=== PATIENT | female | born 1935 | race Caucasian/White ===

== ENCOUNTER → 2023-06-14 14:42 | Outpatient (REF) | payer OTHER, SELFPAY | LOC: RAD 14:42 | PROVIDERS: ATTENDING PHYSICIAN Family Medicine | DX: M25.562 Pain in left knee (principal) | CPT/HCPCS: 73564; 73565 ==

== ENCOUNTER → 2024-01-09 11:20 | Outpatient (REF) | payer OTHER, SELFPAY | LOC: RAD 11:20 | PROVIDERS: ATTENDING PHYSICIAN Internal Medicine Rheumatology; FAMILY PHYSICIAN Family Medicine | DX: M81.0 Age-related osteoporosis without current pathological fracture (principal); Z13.820 Encounter for screening for osteoporosis | CPT/HCPCS: 77080 ==

== ENCOUNTER → 2024-04-30 12:43 | Outpatient (REF) | payer OTHER, SELFPAY | LOC: RAD 12:43 | PROVIDERS: ATTENDING PHYSICIAN Urology; FAMILY PHYSICIAN Family Medicine | DX: R31.0 Gross hematuria (principal); N32.9 Bladder disorder, unspecified; N39.0 Urinary tract infection, site not specified | CPT/HCPCS: 74178; Q9967 ==

== ENCOUNTER → 2025-02-12 11:13 | Outpatient (REF) | payer OTHER, SELFPAY | LOC: RAD 11:13 | PROVIDERS: ATTENDING PHYSICIAN Surgery Vascular Surgery; FAMILY PHYSICIAN Family Medicine | DX: I71.43 Infrarenal abdominal aortic aneurysm, without rupture (principal) | CPT/HCPCS: 76770 ==

== ENCOUNTER 2025-04-29 02:13 | Inpatient (IN) | payer OTHER, SELFPAY ==
[2025-04-28 15:35] VITALS: BP 122/62
[2025-04-28 16:16] LABS: Hematocrit 34.7 % (37.0-47.0); Hemoglobin 11.7 g/dL (12.0-16.0); Mean Corp Hgb Conc. 33.7 g/dL (33.0-37.0); Mean Corpuscular Volume 85.7 fL (81.0-99.0); Nucleated Red Blood Cells % 0 %; Platelet Count 241 10^3/uL (130-400); Red Cell Dist. Width 14.6 % (11.5-14.5)
[2025-04-28 16:28] LABS: INR 1.76; PT 20.7 Sec (11.4-14.6)
[2025-04-28 16:36] LABS: ALT (SGPT) 19 U/L (0-35); AST (SGOT) 25 U/L (14-36); Albumin 3.5 g/dl (3.5-5.0); Alkaline Phosphatase 75 U/L (38-126); Blood Urea Nitrogen 14 mg/dl (7-17); Calcium 8.9 mg/dl (8.4-10.2); Carbon Dioxide 23 mmol/L (22-30); Chloride 103 mmol/L (98-107); Glucose 92 mg/dl (70-99); Potassium 3.9 mmol/L (3.5-5.1); Sodium 131 mmol/L (135-145); Total Protein 6.0 g/dl (6.3-8.2); eGFR > 60.00
[2025-04-28 16:42] LABS: Troponin I 0.023 ng/ml
[2025-04-28 21:48] VITALS: BMI 29.4
[2025-04-28 21:55] VITALS: BP 149/86
[2025-04-28 22:00] VITALS: BP 163/77
--- NOTE | 2025-04-28 22:19 | ED.GENMED ---
History of Present Illness
General
Chief Complaint: Breathing Problem
Time Seen by Provider: 04/28/25 22:11
History of Present Illness
History of Present Illness:
Patient is a 89-year-old woman with history of CAD, sick sinus syndrome with pacemaker presenting to the emergency department with shortness of breath upon exertion. Patient states for the past few weeks she has had significant dyspnea on exertion.
It occurs only with significant exertion such as going up a flight of steps. She reported to walk a few steps to the bathroom she does not have significant shortness of breath. No chest pain. No lightheadedness dizziness. She is on Eliquis. No
chest pain or pressure. No diaphoresis. No nausea no vomiting.
Past History
Past History
ED Past Medical History: Arrthythmia (Paroxysmal atrial fibrillation) and HTN
ED Past Surgical History: Cardiac (Pacemaker), Tonsilectomy and Other (Cataract surgery, cornea transplant bilateral)
Social History
Tobacco: Former smoker
Living: with family
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
Phy Exam
Physical Exam
Physical Exam:
GENERAL: in no acute distress
HEENT: normocephalic, extraocular movements intact, moist oral mucosa
NECK: normal inspection
RESPIRATORY: no respiratory distress, clear to auscultation bilaterally
CARDIOVASCULAR: regular rate and rhythm
ABDOMEN/: soft, non-distended, non-tender to palpation, no rebound or guarding
EXTREMITIES: non-tender, no edema/swelling
NEUROLOGIC: awake and alert, moves all extremities
SKIN: warm
Scores
Heart Failure Risk
Heart Failure Risk Score: Not Applicable
Course
Orders/Labs/Results
Orders:
Orders
04/28/25 15:08
EKG [Electrocardiogram (*1)] Urgent
Reason for Study: Shortness of Breath
04/28/25 15:09
EKG- Treatment ONCE
04/28/25 15:37
CR Chest - 2 Views Urgent
Comment:
Reason For Exam: SOB
04/28/25 16:07
Complete Blood Count/With Diff Urgent
Comprehensive Metabolic Panel Urgent
Pro-BNP [NT-proBNP] Urgent
Prothrombin Time Urgent
Troponin I Urgent
04/28/25 22:11
Electrocardiogram (*1) Urgent
Reason for Study: Shortness of Breath
EKG- Treatment ONCE
04/28/25 22:41
Troponin I Urgent
Abnormal Lab Results
04/28/25
16:07
RBC 4.05 L 10^6/uL
(4.20-5.40)
Hgb 11.7 L g/dL
(12.0-16.0)
Hct 34.7 L %
(37.0-47.0)
RDW 14.6 H %
(11.5-14.5)
Absolute Lymphs (auto) 0.9 L 10^3/uL
(1.2-3.4)
Absolute Monos (auto) 1.3 H 10^3/uL
(0.1-0.6)
Lymphocytes % 10.0 L %
(20.5-51.1)
Monocytes % 14.5 H %
(1.7-9.3)
PT 20.7 H Sec
(11.4-14.6)
Sodium 131 L mmol/L
(135-145)
Total Protein 6.0 L g/dl
(6.3-8.2)
04/28/25 16:07
04/28/25 16:07
Vital Signs
Initial and Last Documented VS:
Initial Vital Signs
Temp Pulse Resp BP Pulse Ox
98.3 F 72 18 122/62 94
04/28/25 15:35 04/28/25 15:35 04/28/25 15:35 04/28/25 15:35 04/28/25 15:35
Last Documented Vital Signs
Temp Pulse Resp BP Pulse Ox
98.3 F 72 18 149/86 93
04/28/25 15:35 04/28/25 15:35 04/28/25 15:35 04/28/25 21:55 04/28/25 22:23
MDM/Problems Addressed
Differential Diagnosis Includes:
Patient is a 89-year-old woman with history of CAD, A-fib on Eliquis presenting to the emergency department shortness of breath upon exertion. On arrival pulse ox 94%. Exam is otherwise reassuring. Concern for dyspnea on exertion being patient's
anginal equivalent. Will check blood work including troponin x 2. Will obtain ambulatory pulse ox. EKG per my interpretation paced rhythm with PACs. Chest x-ray with no acute abnormality
*Pulse Oximetry
SaO2: 93
Oxygen Mode of Delivery: Room air
Patient hypoxic: yes
*Critical Care Note
Total Time (30-74mins, 75-104mins- exclusive of procedures): Not Applicable
Update Note
Update Note:
Upon standing patient's oxygen dropped to 88%. With ambulation patient in the mid 80s. Patient placed on nasal cannula. Discussed with hospitalist who excepted patient to their service. Delta troponin pending.
ED Attending Note
-
Portions of this chart may have been created with voice recognition software.� Occasional wrong word or��sound alike� substitutions may have occurred due to the inherent limitations of voice recognition software.
Discharge Plan
Departure
Patient Disposition: Admit
Date of Disposition: 04/28/25
Time of Disposition: 22:53
Presentation/result/management discussed w/ accepting MD/DO: Hospitalist
Discharge Problem:
Exertional dyspnea
Prescriptions:
No Action
atorvastatin 40 MG tablet
40 mg PO DAILY
calcium carbonate-vitamin D3 1 EACH capsule
1 cap PO QPM
Patient Comments:
1200 mg/1000 iu strength
One Daily Women 50 Plus 1 EACH tablet
1 ea PO QPM
metoprolol succinate 50 MG tablet extended release 24 hr
50 mg PO BID Qty: 60 1RF
Eliquis 5 MG tablet
5 mg PO BID Qty: 60 0RF
diltiazem HCl 120 MG capsule,extended release 24hr
120 mg PO DAILY Qty: 30 1RF
prednisolone acetate (PF) 1 % Drops,Suspension
1 drp BOTH EYES DAILY
phenazopyridine [Pyridium] 100 mg tablet
100 mg PO TID Qty: 6 0RF
cefdinir 300 mg capsule
300 mg PO BID 7 Days Qty: 14 0RF
Referrals:
UNKNOWN - PT DOES,NOT KNOW [Family Provider]
Interventions
Interventions:
*General Assessment Last Done: 04/28/25 15:36
*Neglect/Abuse Screening Last Done: 04/28/25 15:36
*ED COVID-19 Vaccine History Last Done: 04/28/25 15:35
*ED Influenza Vaccine History Last Done: 04/28/25 15:35
[facility] Fall Risk Assessment Tool Last Done: 04/28/25 21:49
*Risk Screen - Suicide (C-SSRS) Last Done: 04/28/25 15:36
ED- Cardiac Assessment Last Done: 04/28/25 21:51
ED- Pulmonary Assessment Last Done: 04/28/25 21:51
Discharge Date and Time
Print Language: TOGOLESE
[2025-04-28 23:00] VITALS: BP 148/69
[2025-04-28 23:27] LABS: Troponin I 0.015 ng/ml
[2025-04-29] VITALS (18 sets, daily range): BP systolic 113–156; BP diastolic 50–108; PULSE 74; O2SAT 98; BMI 29.4; BMI 28.6
--- NOTE | 2025-04-29 02:05 | HPS.HSE ---
Family Physician
-
Family Physician: Amna Queen
Chief Complaint
-
PERRY
History of Present Illness
Patient is an 89y F with PMH significant for ASCVD, A-Fib and CKD III who presents to ED complaining of PERRY. Patient states that she has noted gradually worsening dyspnea with exertion / activity over the past month or so. She denies any
associated chest pain, palpitations, cough, fevers / chills, etc. No prior h/o similar symptoms.
She started and abx for UTI symptoms about one week ago - otherwise no new medications / changes.
Medical History
Past Medical History
Past Medical History: Reports Other
Additional Past Medical History:
ASCVD (OM disease on cath in 2018 - no stent)
Paroxysmal Atrial Fibrillation
SSS
Hypertension
Infrarenal AAA (stable as of 02/2025)
Bladder Mass
OAB
CKD III
Past Surgical History: Reports Other
Additional Past Surgical History:
Cardiac Cath (no stent)
PPM Placement
D&C
Ex Lap
TURBT
Social History
Tobacco: Former Smoker (Quit smoking 10 years ago. > 40 pack years total use.)
Alcohol: None
Drug: None
Family History
Family History: Not pertinent
Allergies / Home Medications
Allergies reflects when Allergies were last updated in [facility].
Home Medications with original date entered in [facility]
Allergy/Medication List:
Allergies
Allergy/AdvReac Type Severity Reaction Status Date / Time
nitrofurantoin (From AdvReac Mild Shortness Verified 04/28/25 15:34
Macrobid) of Breath
Home Medications
atorvastatin 40 mg tablet 40 mg PO DAILY 08/10/17
calcium 600 mg (as carbonate)-vitamin D3 12.5 mcg (500 unit) capsule 1 cap PO QPM 11/12/17
multivitamin with [id number] 400 mcg-120 mg tablet (One Daily Women 50 Plus) 1 ea PO QPM 11/12/17
apixaban 5 mg tablet (Eliquis) 5 mg PO BID #60 tabs 11/15/17
diltiazem HCl 120 mg capsule,extended release 24 hr 120 mg PO DAILY #30 caps 11/15/17
metoprolol succinate 50 mg tablet,extended release 24 hr 50 mg PO BID ##60 11/15/17
prednisolone acetate (PF) 1 % eye drops,suspension 1 drp BOTH EYES DAILY 11/26/21
cefuroxime axetil 250 mg tablet 250 mg PO BID 04/29/25
Review of Systems
-
History Source: Patient
A 12 point ROS was completed and negative except as noted: Yes
Constitutional: Reports Fatigue; Denies Fever or Chills
EENT: Denies Sore Throat
Respiratory: Reports Trouble Breathing; Denies Cough
Cardiac: Denies Chest Pain, Diaphoresis, Palpitations or Syncope
Abdomen/GI: Denies Abdominal Pain, Nausea, Vomiting or Diarrhea
: Denies Dysuria, Frequency or Flank Pain
Musculoskeletal: Denies Joint Pain, Joint Swelling or Edema
Neurological: Denies Dizzy or Headache
Psych: Denies Depression or Anxiety
Physical Exam
Vital Signs
Vital Signs
Temp Pulse Resp BP Pulse Ox
98.3 F 70 24 144/66 94
04/28/25 15:35 04/29/25 01:15 04/29/25 01:15 04/29/25 01:00 04/29/25 01:15
Physical Exam
General: Other (89y F in no acute distress at rest.)
HEENT: Moist mucous membranes and Other (Pos JVD / HJR)
Respiratory: Other (Few bibasilar rals)
Cardiac: S1/S2, Regular Rhythm and Murmur (II/ NEVILLE)
GI: Soft, Non Tender, Non Distended and Normal Bowel Sounds
Musculoskeletal: No Clubbing, No Cyanosis and No Edema
Neuro: AO x 3
Laboratory Results
-
04/28/25 16:07
04/28/25 16:07
Laboratory Results
PT 20.7 Sec (11.4-14.6) H 04/28/25 16:07
INR 1.76 04/28/25 16:07
Total Bilirubin 1.3 mg/dl (0.2-1.3) 04/28/25 16:07
AST 25 U/L (14-36) 04/28/25 16:07
ALT 19 U/L (0-35) 04/28/25 16:07
Alkaline Phosphatase 75 U/L (38-126) 04/28/25 16:07
Troponin I 0.015 ng/ml D 04/28/25 22:41
Impression/Plan
-
A/P: Patient is an 89y F with PMH significant for ASCVD, hypertension and CKD who presents to ED complaining of PERRY x 1 month or so.
PERRY
Acute Hypoxemic Respiratory Insufficiency
- Admit for further evaluation and treatment.
- Patient reportedly with SpO2 saturations into the 80s during ambulation in the ED.
- Currently 92 - 96% on supplemental O2 at rest.
- EKG unremarkable. Non-negative troponin already trending down.
- CXR unremarkable.
- Low suspicion for PE with gradual onset, absence of chest discomfort and compliance with Eliquis.
Acute HF - Unknown Type
- New onset CHF seems most likely diagnosis.
- Check Echo for further evaluation.
- IV Lasix daily and follow I/Os, daily weights,. etc.
- Cardiology evaluation for additional recommendations.
ASCVD
- No chest pain at present. EKG is A-paced without evident ischemia.
- Troponin down-trending since admission.
Paroxysmal Atrial Fibrillation
- Stable. Paced rhythm at present.
- Continue metoprolol, diltiazem, Eliquis for now.
Benign Hypertension
- Stable. Continue usual med regimen.
- Adjust as needed to allow effective diuresis.
CKD II
- Reported by history. Current renal function is normal.
DVT Prophylaxis: On Eliquis
Code Status: Full
[2025-04-29 06:18] LABS: Hematocrit 35.0 % (37.0-47.0); Hemoglobin 11.6 g/dL (12.0-16.0); Mean Corp Hgb Conc. 33.1 g/dL (33.0-37.0); Mean Corpuscular Volume 87.1 fL (81.0-99.0); Platelet Count 220 10^3/uL (130-400); Red Cell Dist. Width 14.6 % (11.5-14.5)
[2025-04-29 06:45] LABS: Blood Urea Nitrogen 13 mg/dl (7-17); Calcium 8.9 mg/dl (8.4-10.2); Carbon Dioxide 27 mmol/L (22-30); Chloride 104 mmol/L (98-107); Estimated Creatinine Clearance 52 ml/min; Glucose 113 mg/dl (70-99); HDL Cholesterol 32 mg/dl; LDL Cholesterol, Calculated 45 mg/dl; Potassium 4.1 mmol/L (3.5-5.1); Sodium 138 mmol/L (135-145); Very Low Density Lipoprotein 16 mg/dl (0-30); eGFR > 60.00
--- NOTE | 2025-04-29 07:53 | W.PN.HOSP.TC ---
Today's Communication/Plan
-
CT chest pending
Assessment / Plan
Assessment / Plan
Impression:
Patient is an 89y F with PMH significant for ASCVD, A-Fib and CKD III who presents to ED complaining of PERRY. Patient states that she has noted gradually worsening dyspnea with exertion / activity over the past month or so. She denies any
associated chest pain, palpitations, cough, fevers / chills, etc. No prior h/o similar symptoms.
She started and abx for UTI symptoms about one week ago - otherwise no new medications / changes.
Echocardiogram done showed:
1. Normal biventricular size and systolic function. LVEF estimated 59%. Mild concentric LVH.
2. Mild aortic stenosis, mean gradient 11 mmHg.
3. Compared to echocardiogram report dated 04/07/2022 mild concentric LVH and mild aortic stenosis are now present.
There is recommended r/O PE
Assessment/plan:
Acute Hypoxemic Respiratory Insufficiency
Admitted for further evaluation and treatment.
Patient reportedly had SpO? saturations in the 80s during ambulation in the ED.
Currently maintaining 92�96% on supplemental oxygen at rest.
EKG unremarkable; troponin trending down.
Chest X-ray unremarkable.
Low suspicion for pulmonary embolism given gradual onset, absence of chest discomfort, and compliance with Eliquis.
Acute on Chronic Diastolic Congestive Heart Failure
Patient presented with shortness of breath; BNP elevated at 1880.
Troponin level noted (down-trending).
Continue IV diuresis with Lasix 40 mg daily.
Monitor daily weight and maintain strict intake/output.
Cardiology consulted.
Prior echocardiogram (04/07/2022):
LV ejection fraction 65�70%, no regional wall motion abnormalities.
Normal RV size and function; pacer wire in RV.
No significant valvular disease.
Repeat echocardiogram shows:
1. Normal biventricular size and systolic function. LVEF estimated 59%. Mild concentric LVH.
2. Mild aortic stenosis, mean gradient 11 mmHg.
3. Compared to echocardiogram report dated 04/07/2022 mild concentric LVH and mild aortic stenosis are now present.
Cardiology recommends to r/O PE
CT chest pending.
Atherosclerotic Cardiovascular Disease (ASCVD)
No chest pain currently.
EKG shows A-paced rhythm without ischemic changes.
Troponin continues to downtrend since admission.
Paroxysmal Atrial Fibrillation
Stable; paced rhythm at present.
Continue metoprolol, diltiazem, and Eliquis.
Benign Hypertension
Stable; continue current regimen.
Adjust as needed to optimize diuresis.
Chronic Kidney Disease Stage II
Reported by history; current renal function within normal limits.
Code Status: Full Code
DVT Prophylaxis: Eliquis
Diet: Regular
Disposition: CT chest pending
Total time spent on today's encounter was 65 minutes which included time spent in counseling the patient/family regarding diagnosis and treatment plan as listed above, goals of care, and symptom management. Case was discussed with nursing staff,
specialists, and care coordinators/case management. All labs and imaging personally reviewed by me. Remainder the time spent in detailed review of previous records, lab data, imaging, and other medical provider documentation.
Anticipated Discharge: 24 - 48 hours
Subjective/Interval History
-
Date of Service: April 29, 2025
Patient seen and examined at bedside, denies any chest pain , shortness of breath Improved, no abdominal pain, no nausea, no vomiting, no diarrhea or constipation.
Objective Data
-
Labs:
Laboratory Results
04/29/25
06:06
WBC 6.6
Hgb 11.6 L
Hct 35.0 L
Plt Count 220
Sodium 138
Potassium 4.1
Chloride 104
Carbon Dioxide 27
BUN 13
Creatinine 0.8
Glucose 113 H
Calcium 8.9
Vital Signs:
Vital Signs
Temp Pulse Resp BP Pulse Ox
98.3 F 66 26 156/61 93
04/28/25 15:35 04/29/25 03:15 04/29/25 03:00 04/29/25 03:00 04/29/25 03:15
Physical Exam
-
General: Well Developed, Well Nourished, No Apparent Distress and Comfortable
HEENT: Normocephalic, Atraumatic, Moist Mucous Membranes, No Ptosis, PERRLA and Nose Appears Normal
Respiratory: Clear to Auscultation and Non Labored Respirations
Cardiac: Regular Rhythm and S1/S2
Breast: Deferred by me
GI: Soft, Nontender, Nondistended and Normal Bowel Sounds
Genito-urinary: No Costovertebral Tender
Musculoskeletal: No Clubbing, No Cyanosis and No Edema
Skin: Warm
Neuro: Awake, Alert, Oriented, AO x 3 and No Motor Deficits
Psych: Calm
Data Reviewed
-
Diagnostic Radiology: Image personally visualized and interpreted and Report Reviewed by me
CT Scan: Image personally visualized and interpreted and Report Reviewed by me
Ultrasound: Image personally visualized and interpreted and Report Reviewed by me
MRI: Image personally visualized and interpreted and Report Reviewed by me
Medical Tests (Nuc Med, Echo etc): Image personally visualized and interpreted and Report Reviewed by me
Labs: Labs Reviewed by me
Old Records: Reviewed
[2025-04-29] MEDS: LIPITOR 40 MG PO (08:21)
[2025-04-29] MEDS: CARDIZEM CD 120 MG PO (08:21)
[2025-04-29] MEDS: ELIQUIS 5 MG PO ×2 (08:22→21:42)
[2025-04-29] MEDS: PRED FORTE 1% EYE DROPS 1 DROP BOTH EYES (08:22)
[2025-04-29] MEDS: TOPROL XL 50 MG PO ×2 (08:22→21:43)
[2025-04-29 08:28] LABS: Glycohemoglobin (HgbA1c) 5.8 % (4.0-5.9)
[2025-04-29] MEDS: LASIX 40 MG IV (08:30)
--- NOTE | 2025-04-29 09:38 | CON.CAR ---
Consultation
Consultation Request
Date/Time Consultation Requested: 04/29/25 @ 02:16
Date/Time Consultation Performed: 04/29/25 @ 09:00
Requesting Provider: Phu Castellon DO
Performing Provider: Maco Nelson MD
Reason for Consultation: concern for CHF
Medical History
-
Chief Complaint: SOB
History of Present Illness:
89-year-old female with paroxysmal atrial fibrillation, PPM for tachybradycardia syndrome, and hypertension who presents with shortness of breath. Patient reports that she has had dyspnea on exertion since around and it is getting
worse which prompted her to come to the hospital. She denies leg swelling, orthopnea, weight gain, chest pain, cough, sick contacts and palpitations. She had a cystoscopy done and had to hold her Eliquis but she does not remember when this was (at
some point in the past 1 year). Of note, her weight here is stable from her office visit in January at which time she weighed 182 pounds.
Past Medical History
Past Medical History: Arrhythmias (pAF, tachybrady s/p PPM) and HTN
Past Surgical History: Other (unrelated)
Social History
Tobacco: Non-Smoker
Family History
Family History: Reviewed & Not Pertinent
Allergies / Home Medications
Allergy/AdvReac Type Severity Reaction Status Date / Time
nitrofurantoin (From AdvReac Mild Shortness Verified 04/28/25 15:34
Macrobid) of Breath
�Medication �Instructions �Recorded �Confirmed �Type
atorvastatin 40 mg tablet 40 mg PO DAILY 08/10/17 04/29/25 History
calcium 600 mg (as 1 cap PO QPM 11/12/17 04/29/25 History
carbonate)-vitamin D3 12.5 mcg
(500 unit) capsule
multivitamin with hrz-PR-brtotu 1 ea PO QPM 11/12/17 04/29/25 History
400 mcg-120 mg tablet (One Daily
Women 50 Plus)
apixaban 5 mg tablet (Eliquis) 5 mg PO BID #60 tabs 11/15/17 04/29/25 Rx
diltiazem HCl 120 mg 120 mg PO DAILY #30 caps 11/15/17 04/29/25 Rx
capsule,extended release 24 hr
metoprolol succinate 50 mg 50 mg PO BID ##60 11/15/17 04/29/25 Rx
tablet,extended release 24 hr
prednisolone acetate (PF) 1 % eye 1 drp BOTH EYES DAILY 11/26/21 04/29/25 History
drops,suspension
cefuroxime axetil 250 mg tablet 250 mg PO BID 04/29/25 04/29/25 History
Review of Systems
-
All other systems: Negative unless noted
Physical Exam
Vital Signs
Temp Pulse Resp BP Pulse Ox
98.3 F 70 20 149/72 91
04/28/25 15:35 04/29/25 09:15 04/29/25 09:15 04/29/25 08:30 04/29/25 09:29
Lab Results
04/29/25 06:06
04/29/25 06:06
Troponin I 0.015 ng/ml D 04/28/25 22:41
Ttw-P-Zcwwsobeljm Pept 1880 pg/ml 04/28/25 16:07
Physical Exam
General: Well Developed and Well Nourished
Respiratory: Clear and Non Labored Respirations; Negative Crackles
Cardiac: S1/S2 and Regular Rhythm; Negative Peripheral Edema or JVD
Neuro: AO x 3
Impression / Plan
-
89-year-old female with paroxysmal atrial fibrillation, PPM for tachybradycardia syndrome, and hypertension who presents with shortness of breath, found to be hypoxic.
Application Spec: [place]
Acute hypoxic respiratory failure
- She is requiring supplemental O2
- Unclear etiology. CXR with no acute abnormalities. No weight gain, orthopnea, or lower extremity edema. proBNP 1880. Low concern for CHF.
- She is s/p 1 dose of IV Lasix in the ER. She will get up and walk around to see if she feels improved.
- Check echocardiogram
- If no other etiology is found and she is still dyspneic, consider scanning for PE as she was off Eliquis for a few days around the time of cystoscopy
- PERRY could be an anginal equivalent. Outpatient stress testing if no other etiology found.
Paroxysmal atrial fibrillation
- In sinus rhythm here
- Continue home diltiazem, metoprolol, and Eliquis
Hypertension: Monitor with rate control agents
Hyperlipidemia: Continue home atorvastatin
Data Reviewed
-
EKG: Tracing Personally Visualized and interpreted, Discussed with Physician and Discussed with Patient
Radiology: Image Personally Visualized and interpreted, Discussed with Physician and Discussed with Patient
Medical Tests (Nuc Med, Echo etc): Report Reviewed by me (TTE 2021: EF 65-70%, no VHD)
Labs: Labs Reviewed by me and Discussed with Patient
[2025-04-29] MEDS: CEFTIN 250 MG PO ×2 (10:32→21:43)
--- NOTE | 2025-04-29 15:53 | EDRN ---
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 Upon returning from the bathroom, the pt was visibly short of breath. the pts room air oxygen saturation was 82%. the pt was
immediately placed back on 2L NC Oxygen and instructed to take deep breaths. On 2L NC O2 and at rest, the pts oxygen saturation increased to 96%. will continue to monitor the pt closely
[2025-04-30] MEDS: NON-FORMULARY ITEM 1 UNIT LEFT EYE (00:21)
[2025-04-30 03:00] VITALS: BP 138/85
[2025-04-30 04:35] VITALS: BMI 28.1
[2025-04-30 06:46] LABS: Hematocrit 33.4 % (37.0-47.0); Hemoglobin 11.3 g/dL (12.0-16.0); Mean Corp Hgb Conc. 33.8 g/dL (33.0-37.0); Mean Corpuscular Volume 87.7 fL (81.0-99.0); Platelet Count 207 10^3/uL (130-400); Red Cell Dist. Width 14.6 % (11.5-14.5)
[2025-04-30 07:20] LABS: Blood Urea Nitrogen 13 mg/dl (7-17); Calcium 8.4 mg/dl (8.4-10.2); Carbon Dioxide 27 mmol/L (22-30); Chloride 105 mmol/L (98-107); Estimated Creatinine Clearance 51 ml/min; Glucose 113 mg/dl (70-99); Potassium 3.9 mmol/L (3.5-5.1); Sodium 136 mmol/L (135-145); eGFR > 60.00
[2025-04-30 07:42] VITALS: BP 103/56
--- NOTE | 2025-04-30 08:18 | W.PN.CD ---
Today's Communication / Plan
-
consider discharge later today if feeling well after additional IV lasic now
will need follow up with Dr Minaya
Impression / Plan
-
89-year-old female with paroxysmal atrial fibrillation, PPM for tachybradycardia syndrome, and hypertension who presents with shortness of breath, found to be hypoxic.
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
acute HF pEF:
-improved with diuresis
-still on supplemental Oxygen
-will continue one more dose of IV lasix
-likely home on furosemide po every other day
-no sglt2i given chronic UTI
-BP precludes MRA, ACEi/ARB/ARNI
Paroxysmal atrial fibrillation
- In sinus rhythm here
- Continue home diltiazem, metoprolol, and Eliquis
Hypertension: Monitor with rate control agents
Hyperlipidemia: Continue home atorvastatin
TTE:04/30/25
SUMMARY
1. Normal biventricular size and systolic function. LVEF estimated 59%. Mild concentric LVH.
2. Mild aortic stenosis, mean gradient 11 mmHg.
3. Compared to echocardiogram report dated 04/07/2022 mild concentric LVH and mild aortic stenosis are now present.
Physical Exam
Vital Signs/Labs
Vital Signs
Temp Pulse Resp BP Pulse Ox
98.4 F 68 18 103/56 97
04/30/25 07:42 04/30/25 07:42 04/30/25 07:42 04/30/25 07:42 04/30/25 07:42
04/29/25 04/30/25 05/01/25
06:59 06:59 06:59
Actual Weight 181 lb 14.102 oz 174 lb
04/30/25 06:15
04/30/25 06:15
PT 20.7 Sec (11.4-14.6) H 04/28/25 16:07
INR 1.76 04/28/25 16:07
Triglycerides 81 mg/dl (10-149) 04/29/25 06:06
LDL Cholesterol, Calc 45 mg/dl 04/29/25 06:06
VLDL Cholesterol, Calc 16 mg/dl (0-30) 04/29/25 06:06
HDL Cholesterol 32 mg/dl 04/29/25 06:06
04/28/25
16:07
Npo-Z-Yaohcqbtpvl Pept 1880
LAB Results
04/28/25 04/28/25
16:07 22:41
Troponin I 0.023 0.015 D
Physical Exam
Constitutional: No acute distress
Cardiovascular: Rhythm & rate is regular, Pedal edema is absent and S1S2 is normal
Respiratory: Respiratory effort normal, Lungs clear to auscul., Wheeze Absent, Crackles Absent and Rhonchi Absent
Neuro/Psych: AO x 3
Data Reviewed
-
Date of Service: April 30, 2025
EKG: Other (tele sinus intermitting paf)
[2025-04-30] MEDS: LASIX 40 MG IV (08:53)
[2025-04-30] MEDS: ELIQUIS 5 MG PO (08:53)
[2025-04-30] MEDS: LIPITOR 40 MG PO (08:54)
[2025-04-30] MEDS: CARDIZEM CD 120 MG PO (08:54)
[2025-04-30] MEDS: TOPROL XL 50 MG PO (08:54)
[2025-04-30] MEDS: NON-FORMULARY ITEM 1 UNIT BOTH EYES (08:55)
[2025-04-30] MEDS: CEFTIN 250 MG PO (10:25)
--- NOTE | 2025-04-30 10:51 | RESPNOTE ---
patient desaturated at the end of the walk to 87% then quickly rebounded to 93% when she stopped walking
--- NOTE | 2025-04-30 11:11 | W.PN.HOSP.TC ---
Today's Communication/Plan
-
Ambulatory pulse ox on exertion today.
Possible discharge later today.
Assessment / Plan
Assessment / Plan
Impression:
Patient is an 89y F with PMH significant for ASCVD, A-Fib and CKD III who presents to ED complaining of PERRY. Patient states that she has noted gradually worsening dyspnea with exertion / activity over the past month or so. She denies any
associated chest pain, palpitations, cough, fevers / chills, etc. No prior h/o similar symptoms.
She started and abx for UTI symptoms about one week ago - otherwise no new medications / changes.
Echocardiogram done showed:
1. Normal biventricular size and systolic function. LVEF estimated 59%. Mild concentric LVH.
2. Mild aortic stenosis, mean gradient 11 mmHg.
3. Compared to echocardiogram report dated 04/07/2022 mild concentric LVH and mild aortic stenosis are now present.
There is recommended r/O PE
CTA chest shows no PE
Assessment/plan:
Acute Hypoxemic Respiratory Insufficiency
Admitted for further evaluation and treatment.
Patient reportedly had SpO? saturations in the 80s during ambulation in the ED.
Currently maintaining 92�96% on supplemental oxygen at rest.
EKG unremarkable; troponin trending down.
Chest X-ray unremarkable.
Low suspicion for pulmonary embolism given gradual onset, absence of chest discomfort, and compliance with Eliquis.
Pulse ox on exertion today and possible discharge
Acute on Chronic Diastolic Congestive Heart Failure
Patient presented with shortness of breath; BNP elevated at 1880.
Troponin level noted (down-trending).
Continue IV diuresis with Lasix 40 mg daily.
Monitor daily weight and maintain strict intake/output.
Cardiology consulted.
Prior echocardiogram (04/07/2022):
LV ejection fraction 65�70%, no regional wall motion abnormalities.
Normal RV size and function; pacer wire in RV.
No significant valvular disease.
Repeat echocardiogram shows:
1. Normal biventricular size and systolic function. LVEF estimated 59%. Mild concentric LVH.
2. Mild aortic stenosis, mean gradient 11 mmHg.
3. Compared to echocardiogram report dated 04/07/2022 mild concentric LVH and mild aortic stenosis are now present.
Cardiology recommends to r/O PE
CT chest shows no PE.
Cardiac recommending Lasix on discharge every other day.
Atherosclerotic Cardiovascular Disease (ASCVD)
No chest pain currently.
EKG shows A-paced rhythm without ischemic changes.
Troponin continues to downtrend since admission.
Paroxysmal Atrial Fibrillation
Stable; paced rhythm at present.
Continue metoprolol, diltiazem, and Eliquis.
Benign Hypertension
Stable; continue current regimen.
Adjust as needed to optimize diuresis.
Chronic Kidney Disease Stage II
Reported by history; current renal function within normal limits.
Code Status: Full Code
DVT Prophylaxis: Eliquis
Diet: Regular
Disposition: Ambulatory pulse ox on exertion today.
Possible discharge later today.
Family communication: Discussed with and son at bedside.
Total time spent on today's encounter was 65 minutes which included time spent in counseling the patient/family regarding diagnosis and treatment plan as listed above, goals of care, and symptom management. Case was discussed with nursing staff,
specialists, and care coordinators/case management. All labs and imaging personally reviewed by me. Remainder the time spent in detailed review of previous records, lab data, imaging, and other medical provider documentation.
Anticipated Discharge: Today
Subjective/Interval History
-
Date of Service: April 30, 2025
Patient seen and examined at bedside, denies any chest pain , shortness of breath Improved, no abdominal pain, no nausea, no vomiting, no diarrhea or constipation.
NO lower extremity edema.
Objective Data
-
Labs:
Laboratory Results
04/30/25
06:15
WBC 8.5
Hgb 11.3 L
Hct 33.4 L
Plt Count 207
Sodium 136
Potassium 3.9
Chloride 105
Carbon Dioxide 27
BUN 13
Creatinine 0.8
Glucose 113 H
Calcium 8.4
Vital Signs:
Vital Signs
Temp Pulse Resp BP Pulse Ox
98.4 F 68 18 103/56 92
04/30/25 07:42 04/30/25 08:53 04/30/25 07:42 04/30/25 08:53 04/30/25 09:03
I&O
04/29/25 04/30/25 05/01/25
06:59 06:59 06:59
Intake Total 480 / 480
Output Total 1790 / 1790
Balance -1310 / -1310
Physical Exam
-
General: Well Developed, Well Nourished, No Apparent Distress and Comfortable
HEENT: Normocephalic, Atraumatic, Moist Mucous Membranes, No Ptosis, PERRLA and Nose Appears Normal
Respiratory: Clear to Auscultation and Non Labored Respirations
Cardiac: Regular Rhythm and S1/S2
Breast: Deferred by me
GI: Soft, Nontender, Nondistended and Normal Bowel Sounds
Genito-urinary: No Costovertebral Tender
Musculoskeletal: No Clubbing, No Cyanosis and No Edema
Skin: Warm
Neuro: Awake, Alert, Oriented, AO x 3 and No Motor Deficits
Psych: Calm
[2025-04-30 11:15] VITALS: BP 120/59
--- NOTE | 2025-04-30 11:18 | CM ---
Patient seen at bedside with Aguilar
IA completed
lives with in 2 story home, 0 ORTIZ, flight to bed/bath
PLOF: Independent
Denies DME
PT rec home health
Denies hx of VN/rehab
options reviewed for home health, [facility] preferred, notified [facility] liaison
Home oxygen assessment completed by respiratory
will require oxygen-to be set up
IMM explained & sgined. In chart.
per hospitalist dicharge today
PCP: Amna Queen
Pharmacy: [facility], [address], [place]
PLAN: home with [facility], home oxygen
--- NOTE | 2025-04-30 11:36 | W.PN.UPDATE ---
Update Note
Progress Note Update
Patient is in need of oxygen on exertion due to pulse ox of 94% on room air at rest. 87%on room air with exertion.
Patient was placed on 1LPM nasal canula during ambulation with sat of 94%. Oxygen will help to improve hypoxemia.
Patient is mobile within the home.
Albuterol therapy has been discussed and is ineffective in treating hypoxemia-related symptoms.
--- NOTE | 2025-04-30 11:39 | W.DCSUMMARY ---
Discharge Summary
Discharge Data
Date of Admission: 04/29/25
Date of Discharge: 04/30/25
Total time spent discharging patient (in min): 40
-
Pending Results: No
Hospital Course
Hospital course
Patient is an 89y F with PMH significant for ASCVD, A-Fib and CKD III who presents to ED complaining of PERRY. Patient states that she has noted gradually worsening dyspnea with exertion / activity over the past month or so. She denies any
associated chest pain, palpitations, cough, fevers / chills, etc. No prior h/o similar symptoms.
She started and abx for UTI symptoms about one week ago - otherwise no new medications / changes.
Echocardiogram done showed:
1. Normal biventricular size and systolic function. LVEF estimated 59%. Mild concentric LVH.
2. Mild aortic stenosis, mean gradient 11 mmHg.
3. Compared to echocardiogram report dated 04/07/2022 mild concentric LVH and mild aortic stenosis are now present.
There is recommended r/O PE
CTA chest shows no PE
cardiology recommending Lasix on discharge every other day,
Repeat BMP after 1 week.
Patient had ambulatory pulse ox done and provide for home oxygen.
During hospitalization patient was treated from the following
Acute Hypoxemic Respiratory Insufficiency
Admitted for further evaluation and treatment.
Patient reportedly had SpO? saturations in the 80s during ambulation in the ED.
Currently maintaining 92�96% on supplemental oxygen at rest.
EKG unremarkable; troponin trending down.
Chest X-ray unremarkable.
Low suspicion for pulmonary embolism given gradual onset, absence of chest discomfort, and compliance with Eliquis.
Pulse ox on exertion done, plan to be discharge on oxygen.
Acute on Chronic Diastolic Congestive Heart Failure
Patient presented with shortness of breath; BNP elevated at 1880.
Troponin level noted (down-trending).
Continue IV diuresis with Lasix 40 mg daily.
Monitor daily weight and maintain strict intake/output.
Cardiology consulted.
Prior echocardiogram (04/07/2022):
LV ejection fraction 65�70%, no regional wall motion abnormalities.
Normal RV size and function; pacer wire in RV.
No significant valvular disease.
Repeat echocardiogram shows: 1. Normal biventricular size and systolic function. LVEF estimated 59%. Mild concentric LVH.
2. Mild aortic stenosis, mean gradient 11 mmHg.
3. Compared to echocardiogram report dated 04/07/2022 mild concentric LVH and mild aortic stenosis are now present.
Cardiology recommends to r/O PE
CT chest shows no PE.
Cardiac recommending Lasix on discharge every other day.
Atherosclerotic Cardiovascular Disease (ASCVD)
No chest pain currently.
EKG shows A-paced rhythm without ischemic changes.
Troponin continues to downtrend since admission.
Paroxysmal Atrial Fibrillation
Stable; paced rhythm at present.
Continue metoprolol, diltiazem, and Eliquis.
Benign Hypertension
Stable; continue current regimen.
Adjust as needed to optimize diuresis.
Chronic Kidney Disease Stage II
Reported by history; current renal function within normal limits.
Code Status: Full Code
DVT Prophylaxis: Eliquis
Diet: Regular
Disposition: Ambulatory pulse ox on exertion today.
Possible discharge later today.
Family communication: Discussed with and son at bedside.
Total time spent on today's encounter was 40 minutes which included time spent in counseling the patient/family regarding diagnosis and treatment plan as listed above, goals of care, and symptom management. Case was discussed with nursing staff,
specialists, and care coordinators/case management. All labs and imaging personally reviewed by me. Remainder the time spent in detailed review of previous records, lab data, imaging, and other medical provider documentation.
Anticipated Discharge: Today
Discharge Plan
-
Patient Disposition: Home with Home Care
Discharge Diagnosis/Procedures: Acute Hypoxemic Respiratory Insufficiency
Acute on Chronic Diastolic Congestive Heart Failure
Paroxysmal Atrial Fibrillation
Diet: Low Sodium and Restrict fluids to 48 oz
Activity: With assistance and As tolerated
Other Services: PT and OT
Specialty Instructions: Weigh Daily- Call MD for wt gain/loss 3 lbs overnight/5 lbs in 1 week
Referrals:
Amna Queen MD [Family Provider, Family Practice] - in one week
Ger Minaya MD [Active, Cardiology] - 05/05/25 4:00 pm
Prescriptions:
New
furosemide [Lasix] 40 mg tablet
40 mg PO Q OTHER DAY Qty: 30 0RF
(DME) Basal Metabolic Panel
See Rx Instructions .Route .MEDSUPPLY Qty: 1 0RF
Rx Instructions:
To be done after 1 week.
Diagnosis congestive heart failure.
Please fax result to PCP/cardiology
Continued
atorvastatin 40 MG tablet
40 mg PO DAILY
metoprolol succinate 50 MG tablet extended release 24 hr
50 mg PO BID Qty: 60 1RF
Eliquis 5 MG tablet
5 mg PO BID Qty: 60 0RF
diltiazem HCl 120 MG capsule,extended release 24hr
120 mg PO DAILY Qty: 30 1RF
prednisolone acetate (PF) 1 % Drops,Suspension
1 drp BOTH EYES DAILY
cefuroxime axetil 250 mg Tablet
250 mg PO BID
prednisolone acetate 1 % Drops,Suspension
1 drp RIGHT EYE HS
Brown 128 2 % Drops
1 drp LEFT EYE HS
therapeutic multivitamin Tablet
1 tab PO DAILY
calcium carbonate-vitamin D3 [Calcium 500 + D] 500 mg-10 mcg (400 unit) Tablet
1 tab PO DAILY
Discharge Orders:
Discharge Patient (As Directed); Ordered 04/30/25
Ordered By: Stepan Lizarraga
Discharge Date and Time
Print Language: YORUBA
--- NOTE | 2025-04-30 12:27 | VNURNOTE ---
Home Health Liaison met with patient, woody , son at bedside to discuss [facility] nurse/therapy, visits, schedule and homebound status. Patient is agreeable and understands that visits at home will be 2-3 x per week to assess and teach medical
management. Patient is aware that [facility] will contact them for start of care within a week after discharge from . Provided contact number for [facility].
New home 02 w/ambulation. Rx, clinicals faxed to [facility] fax # [phone]. Confirmed with Hi that all paperwork rec'ed. he will deliver portable tank to bedside in an hour. Family updated with time frame.
[facility] referral completed in [facility] Port.
== END 2025-04-30 14:09 | disposition home health service (06) | DRG 291 ==
LOC: 3 WEST ACU 02:13
PROVIDERS: Emergency Medicine; ADMITTING PHYSICIAN Hospitalist; ATTENDING PHYSICIAN General Practice; EMERGENCY PHYSICIAN Student in an Organized Health Care Education/Training Program; FAMILY PHYSICIAN Family Medicine; OTHER PHYSICIAN Student in an Organized Health Care Education/Training Program
DX: I13.0 Hypertensive heart and chronic kidney disease with heart failure and stage 1 through stage 4 chronic kidney disease, or unspecified chronic kidney disease (principal); I50.33 Acute on chronic diastolic (congestive) heart failure; I25.10 Atherosclerotic heart disease of native coronary artery without angina pectoris; N18.30 Chronic kidney disease, stage 3 unspecified; I48.0 Paroxysmal atrial fibrillation; N32.81 Overactive bladder; I49.5 Sick sinus syndrome; I71.43 Infrarenal abdominal aortic aneurysm, without rupture; Z87.891 Personal history of nicotine dependence; Z79.01 Long term (current) use of anticoagulants; Z79.899 Other long term (current) drug therapy; R09.02 Hypoxemia; Z95.0 Presence of cardiac pacemaker
CPT/HCPCS: 71046; 71275; 80048; 80053; 80061; 83036; 83880; 84443; 84484; 85025; 85027; 85610; 93005; 93306; 99285; Q9967